=== PATIENT | male | born 1995 | race Caucasian/White ===

== ENCOUNTER 2017-08-08 13:36 | Emergency (ER) | payer OTHER ==
[2017-08-08 13:52] VITALS: BP 160/85; PULSE 83; RESP 18; TEMP 97.3; O2SAT 97
[2017-08-08] MEDS ORDERED: IBUPROFEN 600 MG TAB PO ONE (13:52)
--- NOTE | 2017-08-08 13:58 | EDPHY ---
H & P Time Seen by Provider: 08/08/17 13:46 HPI/ROS: HPI Neck pain. 22-year-old male by private vehicle. This patient reports that yesterday he was lifting a toilet up on his right shoulder and holding it on his right shoulder with his right and left hand. He reports that he carried it up some stairs this way. He reports that when he got to the top of the stairs the top of the toilet hit the ceiling and pressed down on his right shoulder. He complains of bilateral posterior neck pain described as through his trapezius muscles worse on the left side versus the right side. He reports he has pain with turning his head to the left and limited motion with turning his head to the left versus the right. No loss of sensation or weakness in his extremities. He did not hit his head. He denies any other complaints. ROS: Constitutional: No fever, no chills. No weakness. Musculoskeletal: No back pain. As above. No myalgias or arthralgias. Skin: No rashes. No lacerations or abrasions. Neurological: No headache. No focal weakness or altered sensation. Past medical history: He denies any significant past medical history. Social history: Nonsmoker. No alcohol. Here by himself. Physical Exam: General Appearance: Alert, no distress. This patient is responding to questions appropriately and in full sentences. This patient appears well- hydrated and well-nourished. Eyes: Pupils equal and round no pallor or injection. No lid edema, erythema or injection. Head: Normocephalic atraumatic. Neck and upper back: He has vague trapezius tenderness on palpation slightly worse on the left side versus the right side through the mid body of the trapezius and up into the lateral posterior aspect of the lower neck. He does not have any immediate paraspinal tenderness on palpation bilaterally. No midline cervical or thoracic spine tenderness on palpation. On gross inspection of the soft tissues of the neck and trapezius area there is no erythema, no warmth, no ecchymosis, edema or swelling. He does not have significant pain with flexion of the neck. He is neurologically intact in all myotomes in dermatomes of the bilateral upper and bilateral lower extremities. Neurological: Motor sensory function is grossly intact as above. Cranial nerves are normal. Gait is normal. Skin: Warm and dry, no rashes. Extremities are symmetrical. All joints range without pain or impingement. Psychiatric: No agitation. No depression. Database: EKG: Imaging: Procedures: Emergency department course: Vital signs reviewed and are normal. The patient's history and examination are not consistent with an acute cervical spine injury. His injury is consistent with a cervical/trapezius muscle strain or torticollis. The patient was given 600 mg of ibuprofen in the emergency department. I will discharge him with instructions for high-dose ibuprofen dosing as well as a 3 day prescription for Flexeril. He feels comfortable with this plan. Return to emergency department precautions were thoroughly reviewed with him. All of his questions were answered. He was discharged in good condition. Differential Diagnosis: The differential diagnosis on this patient includes but is not limited to torticollis, trapezius muscle strain, cervical strain. Fracture, subluxation, dislocation of the cervical spine, acute radiculopathy, epidural compression syndrome unlikely. This represents a partial list of diagnoses considered. These considerations are based on history, physical exam, past history, reassessment and diagnostic testing. Constitutional: Initial Vital Signs Temperature (C) 36.3 C 08/08/17 13:45 Heart Rate 83 08/08/17 13:45 Respiratory Rate 18 08/08/17 13:45 Blood Pressure 160/85 H 08/08/17 13:45 O2 Sat (%) 97 08/08/17 13:45 O2 Delivery Mode Room Air Allergies/Adverse Reactions: No Known Allergies Allergy (Unverified 08/08/17 13:44) Home Medications: Medication Instructions Recorded Cyclobenzaprine [Flexeril 10 MG 10 mg PO TID #9 tab 08/08/17 (*)] Medical Decision Making - Data Points Medications Given: Discontinued Medications Ibuprofen (Motrin) 600 mg PO EDNOW ONE Stop: 08/08/17 13:53 Last Admin: 08/08/17 13:54 Dose: 600 mg Departure - Departure Disposition: Home, Routine, Self-Care Clinical Impression: Torticollis, acute, Cervical muscle strain Condition: Good Instructions: Cervical Strain (ED), Spasmodic Torticollis (ED) Additional Instructions: Read and follow provided instructions. Follow-up with your primary care physician on Sunday as needed. As discussed, return here to the emergency department if symptoms have not significantly reduced in 3 days after limited activity and medications as prescribed. Take medication as prescribed for muscle spasm. Do not drive while taking this medication. Ibuprofen dosin mg every 6 hours with meals for the next 3 days only. Return to the emergency department for worsening pain, loss of sensation or weakness in her extremities or other serious concerns. Referrals: NONE *PRIMARY CARE P,. [Primary Care Provider] - As per Instructions Prescriptions: Cyclobenzaprine [Flexeril 10 MG (*)] 10 mg PO TID #9 tab
== END 2017-08-08 14:08 | disposition home or self-care (01) ==
LOC: CED 13:36
DX: S16.1XXA Strain of muscle, fascia and tendon at neck level, initial encounter (principal); M43.6 Torticollis; W22.8XXA Striking against or struck by other objects, initial encounter; Y99.0 Civilian activity done for income or pay